=== PATIENT | female | born 1990 | race Caucasian/White ===

== ENCOUNTER 2020-09-10 14:54 | Outpatient (CLI) | payer OTHER ==
[2015-06-22 06:18] VITALS: BMI 37.3
[~2020-09-10 14:54] MED LIST: DEMEROL50 MG PO; FERROUS SULFAT325 MG; IBUPROFEN600 MG PO; PRENATAL COMPLE1 TAB PO
== END 2020-09-10 15:17 | disposition home or self-care (01) ==
LOC: D.LDO 14:54
PROVIDERS: ATTEND Student in an Organized Health Care Education/Training Program
DX: O26.899 Other specified pregnancy related conditions, unspecified trimester (principal)

== ENCOUNTER → 2020-09-29 14:29 | Outpatient (CLI) | payer OTHER ==
[2015-06-22 06:18] VITALS: BMI 37.3
== END | disposition home or self-care (01) ==
LOC: D.LDO 14:29
PROVIDERS: ATTEND Obstetrics & Gynecology
DX: O47.9 False labor, unspecified (principal)

== ENCOUNTER 2020-10-06 06:33 | Inpatient (IN) | payer OTHER ==
[~2020-10-06] VITALS: Ht 162.6 cm; Wt 90.7 kg
[2020-10-06 07:12] LABS: HEMATOCRIT 35.8 % (36.0-48.0); MCH 30.1 pg (26.0-34.0); MCHC 33.5 g/dL (31.0-37.0); MCV 89.7 fL (80.0-100.0); MEAN PLATELET VOLUME 11.2 fL (7.4-10.4); RBC 3.99 10x6/uL (4.00-5.40); RDW 13.4 % (11.5-14.5); WBC 10.4 10x3/uL (4.8-10.8)
[2020-10-06 07:56] VITALS: BP 114/73; Ht 162.6 cm; Wt 90.7 kg
[2020-10-06 10:47] LABS: UDS - AMPHET NEGATIVE QUAL (NEGATIVE); UDS - BARB NEGATIVE QUAL (NEGATIVE); UDS - BENZO NEGATIVE QUAL (NEGATIVE); UDS - COCAINE NEGATIVE QUAL (NEGATIVE); UDS - OPIATE NEGATIVE QUAL (NEGATIVE); UDS - PCP NEGATIVE QUAL (NEGATIVE); UDS - THC NEGATIVE QUAL (NEGATIVE)
--- NOTE | 2020-10-06 16:11 | NUR ---
RECIEVED PT AMBULATORY FROM LABOR AND DELIVERY. PT ORIENTED TO ROOM. BED IN LOW POSITION, CALL LIGHT WITHIN REACH. NO NEEDS OR CONCRNS VOICED AT THIS TIME.
--- NOTE | 2020-10-06 19:00 | NUR ---
PT REPORT GIVEN BY LINNEA CULLEN
--- NOTE | 2020-10-06 19:15 | NUR ---
WALKING ROUNDS DONE. WAS INTRODUCED TO PT AND HER . EXPLAINED THAT I WOULD BE BACK IN A FEW MINUTES TO DO HER ASSESSMENT.
--- NOTE | 2020-10-06 19:50 | NUR ---
IN PT ROOM TO DO ASSESSMENT BUT PT WAS NOT IN THE ROOM.
--- NOTE | 2020-10-06 20:30 | NUR ---
PT IS STILL OUT OF HER ROOM.
[2020-10-06 21:00] VITALS: BP 106/65
--- NOTE | 2020-10-06 21:00 | NUR ---
PT IS IN ROOM NOW. ASSESSMENT COMPLETED. PT STATES HER BLEEDING IS SMALL. SHE STATES THAT SHE DOES NOT HAVE ANY PAIN AT ALL. FUNDUS IS FIRM. IV SITE SALINE LOCKED. NO OTHER C/O AT THIS TIME.
--- NOTE | 2020-10-06 22:00 | NUR ---
PT IS IN HER ROOM FEEDING THE BABY. SHE HAS NO C/O NOW
--- NOTE | 2020-10-07 | NUR ---
PT IS AWAKE HOLDING THE BABY. STILL NO C/0 OR NEEDS.
--- NOTE | 2020-10-07 02:00 | NUR ---
ROUNDS MADE. PT AND BABY ARE ASLEEP IN THE BED. NURSE PICKED UP THE BABY AND PLACED IN CRIB. MOM DID WAKE UP AND I EXPLAINED ABOUT MONS AND BABIES NOT SLEEPING TOGETHER FOR RISK OF SUFFICATION. MOM VERBALIZED UNDERSTANDING. NO PAIN. NO NEEDS
--- NOTE | 2020-10-07 04:00 | NUR ---
PT RESTING QUIETLY WITH HER EYES CLOSED.
--- NOTE | 2020-10-07 05:00 | NUR ---
CHECKED ON PT. SHE IS UP IN HER ROOM. SHE STATES SHE JUST CHANGED THE BABY. SHE HAS NO C/O. SHE STATES BLEEDING IS SMALL. TOOK PT A GLASS OF ICE WATER.
[2020-10-07 05:41] LABS: BASOPHILS 0.4 % (0-2); EOSINOPHILS 1.9 % (0-7); HEMATOCRIT 31.3 % (36.0-48.0); HEMOGLOBIN 10.5 g/dL (12-16); IMMATURE GRANULOCYTES 0.3 % (0-5); LYMPHOCYTE ABS# 1.88 10x3/uL (1.18-3.74); LYMPHOCYTES 18.5 % (15-50); MCHC 33.5 g/dL (31.0-37.0); MCV 89.4 fL (80.0-100.0); MEAN PLATELET VOLUME 10.9 fL (7.4-10.4); MONOCYTES 6.5 % (2-11); NEUTROPHIL ABS# 7.35 10x3/uL (1.56-6.13); NEUTROPHILS 72.4 % (40-80); PLATELET COUNT 253 10x3/uL (130-400); RDW 13.3 % (11.5-14.5); WBC 10.2 10x3/uL (4.8-10.8)
--- NOTE | 2020-10-07 06:10 | NUR ---
RESTING QUIETLY WITHOUT C/O. NO NEEDS
[2020-10-07 07:40] VITALS: BP 134/82
--- NOTE | 2020-10-07 07:40 | NUR ---
THIS RN TO ROOM FOR SHIFT ASSESSMENT. PT SITTING UP IN BED, AAOx3, TALKING WITH NURSERY NURSE. SHIFT ASSESSMENT COMPLETED, VSS, SEE FLOWSHEET FOR DOC. PT REPORTS MILD CRAMPING PAIN RATED APPROX 3/10, DENIES NEED FOR MED OR INTERVENTION FOR PAIN. PT NOTED TO HAVE PRODUCTIVE COUGH, STATES SHE STARTS EVERY MORNING WITH IT DUE TO HX OF SMOKING. LUNGS CLEAR FOLLOWING COUGH. PT ENCOURAGED TO COUGH UP ANY SECRETIONS, UNDERSTANDING VERBALIZED. FF, ML, U/1. SMALL RUBRA LOCHIA, NO CLOTS. PT DENIES ANY HEAVY LOCHIA OR CLOTS WITH CHANGING PADS. INSTRUCTED ON S/S TO REPORT AND TO EMPTY BLADDER AT LEAST EVERY 3-4 HOURS TO DECREASE CRAMPING AND BLEEDING. UNDERSTANDING VERBALIZED. PT REQUESTING PIV REMOVED. AM LABS REVIEWED AND NOTED TO BE STABLE. RIGHT WRIST PIV REMOVED PER PROTOCOL WITHOUT INCIDENT. PRESSURE HELD AND BANDAID APPLIED. PT SETTING UP BREAKFAST TRAY, DENIES NAUSEA. PERIPADS PROVIDED PER REQUEST, PT DENIES FURTHER NEEDS. POSSIBLE D/C TO HOME DISCUSSED. SRUx2, CL IN REACH. RESTING IN [place] AND SIG OTHER AMBULATING IN ROOM.
--- NOTE | 2020-10-07 07:50 | NUR ---
DR ROSARIO TO ROOM FOR ROUNDING, DISCUSSING PLAN FOR D/C TO HOME. VERBAL ORDER RECEIVED FOR D/C TO HOME AT 24 HOURS WITH DISCHARGE.
[2020-10-07 08:14] LABS: RAPID PLASMA REAGIN Non Reactive (Non Reactive)
--- NOTE | 2020-10-07 09:22 | NUR ---
PT UP AMBULATING IN HALLS, GETTING ICE WATER. DENIES ANY NEEDS AT THIS TIME, AMBULATES BACK TO ROOM.
--- NOTE | 2020-10-07 10:30 | NUR ---
FIRST UNIT PRBC COMPLETED, SALINE SET TO FLUSH PIV. PT SHIVERING, STATES SHE "JUST FEELS COLD". VSS, NO FEVER, ORAL TEMP 98.0. PT DENIES FEELING SOB, HEART RACING OR ANY ITCHING. STATES SHE IS JUST COLD. WARM BLANKET PROVIDED. PT STATES SHE WOULD LIKE PAIN PILL SHE IS STARTING TO HURT DUE TO MOVEMENT WITH SHIVERING, RATES PAIN 3/10 BUT GETTING WORSE. NORCO ADMIN ORDERED FOR PAIN, SEE EMAR FOR DOC. PT DENIES FURTHER NEEDS. POC DISCUSSED. SRUx2, CL IN REACH. MOTHER REMAINS AT BEDSIDE.
--- NOTE | 2020-10-07 11:58 | NUR ---
THIS RN TO ROOM FOR PT CHECK. PT SITTING UP IN BED, HOLDING . DENIES PAIN OR ANY NEEDS. SIG OTHER ON BEDSIDE COUCH. SRUx2, CL IN REACH.
--- NOTE | 2020-10-07 13:53 | NUR ---
PT UP AMBULATING IN HALLS, GET ICE WATER FOR SELF AND SIG OTHER. PT DENIES PAIN OR ANY NEEDS. PT AMBULATES BACK TO ROOM.
--- NOTE | 2020-10-07 15:24 | NUR ---
PT UP AMBULATING IN HALLS, TO NURSES DESK ASKING WHEN SHE MAY D/C TO HOME. PT UPDATED WAITING ON INFANT LAB RESULTS TO DETERMINE FURTHER POC. UNDERSTANDING VERBALIZED. PT AMBULATES BACK TO ROOM WITH SIG OTHER.
--- NOTE | 2020-10-07 17:02 | NUR ---
NURSERY FINISHED WITH DISCHARGE. THIS RN TO ROOM FOR PT DISCHARGE. DISCHARGE INSTRUCTIONS GIVEN TO PT. UNDERSTANDING VERBALIZED AND DENIES QUESTIONS. PT SIGNS CHART COPIES. SIG OTHER WITH CAR TO E.R. ENTRANCE FOR D/C TO HOME.
--- NOTE | 2020-10-07 17:10 | NUR ---
TRANSPORT STAFF TAKES PT OFF UNIT VIA W/C FOR D/C TO HOME WITH , SIG OTHER TO DRIVE HOME.
== END 2020-10-07 17:10 | disposition home or self-care (01) | DRG 807 ==
LOC: D.LD 06:33
PROVIDERS: ADMIT Student in an Organized Health Care Education/Training Program; ATTEND Student in an Organized Health Care Education/Training Program
PROC: 10E0XZZ Delivery of Products of Conception, External Approach (ICD-10-PCS; principal; 2020-10-06)
PROC: 3E033VJ Introduction of Other Hormone into Peripheral Vein, Percutaneous Approach (ICD-10-PCS; 2020-10-06)
DX: O80 Encounter for full-term uncomplicated delivery (principal); Z37.0 Single live birth; Z3A.40 40 weeks gestation of pregnancy